=== PATIENT | female | born 1990 | race Caucasian/White ===

== ENCOUNTER 2019-09-20 09:27 | Emergency (ER) | payer BC ==
--- NOTE | 2019-09-20 10:13 | ED ---
General Adult HPI - General Chief complaint: Vaginal Bleeding Stated complaint: 6wks preg, bleeding Time Seen by Provider: 09/20/19 09:40 Source: patient, RN notes reviewed Mode of arrival: ambulatory Limitations: no limitations - History of Present Illness Initial comments: 29-year-old female presents emergency Department with chief complaint of vaginal bleeding in early . Patient states that she is A3 is currently 6-[address] to [address] Dr[address] Moulton. Patient states she has very mild abdominal cramping, no dysuria no hematuria denies any diarrhea constipation appears or chills. - Related Data Allergies Allergy/AdvReac Type Severity Reaction Status Date / Time amoxicillin Allergy Unknown Verified 09/20/19 09:33 Review of Systems ROS Statement: Those systems with pertinent positive or pertinent negative responses have been documented in the HPI. ROS Other: All systems not noted in ROS Statement are negative. Past Medical History Past Medical History: No Reported History History of Any Multi-Drug Resistant Organisms: None Reported Past Surgical History: Ear Surgery Additional Past Surgical History / Comment(s): D&C Past Psychological History: No Psychological Hx Reported Smoking Status: Current every day smoker Past Alcohol Use History: None Reported Past Drug Use History: None Reported General Exam Limitations: no limitations General appearance: alert, in no apparent distress Head exam: Present: atraumatic, normocephalic, normal inspection Eye exam: Present: normal appearance, PERRL, EOMI. Absent: scleral icterus, conjunctival injection, periorbital swelling ENT exam: Present: normal exam, normal oropharynx, mucous membranes moist Respiratory exam: Present: normal lung sounds bilaterally. Absent: respiratory distress, wheezes, rales, rhonchi, stridor Cardiovascular Exam: Present: regular rate, normal rhythm, normal heart sounds. Absent: systolic murmur, diastolic murmur, rubs, gallop, clicks GI/Abdominal exam: Present: soft, normal bowel sounds. Absent: distended, tenderness, guarding, rebound, rigid Back exam: Absent: CVA tenderness (R), CVA tenderness (L) Neurological exam: Present: alert Skin exam: Present: warm, dry, intact, normal color. Absent: rash Course Vital Signs 09/20/19 09:31 Temperature 98.3 F Pulse Rate 90 Respiratory 18 Rate Blood Pressure 114/76 O2 Sat by Pulse 96 Oximetry Medical Decision Making - Medical Decision Making Patient ultrasound does not show any evidence of intrauterine at this time though beta hCG is 959. This is concerning for possible miscarriage versus early . I do not feel that she has not She is in no discomfort at this time. Vital are stable patient will have repeat hCG in 2 days and return for any worsening symptoms. - Lab Data Result diagrams: 09/20/19 10:01 09/20/19 10:01 Lab Results 09/20/19 09/20/19 09/20/19 Range/Units 10:01 10: 10:01 WBC 7.3 (3.8-10.6) k/uL RBC 4.48 (3.80-5.40) m/uL Hgb 13.4 (11.4-16.0) gm/dL Hct 40.0 (34.0-46.0) % MCV 89.2 (80.0-100.0) fL MCH 30.0 (25.0-35.0) pg MCHC 33.6 (31.0-37.0) g/dL RDW 11.8 (11.5-15.5) % Plt Count 245 (150-450) k/uL Neutrophils % 61 % Lymphocytes % 27 % Monocytes % 5 % Eosinophils % 3 % Basophils % 2 % Neutrophils # 4.5 (1.3-7.7) k/uL Lymphocytes # 2.0 (1.0-4.8) k/uL Monocytes # 0.3 (0-1.0) k/uL Eosinophils # 0.2 (0-0.7) k/uL Basophils # 0.2 (0-0.2) k/uL Sodium 138 (137-145) mmol/L Potassium 5.0 (3.5-5.1) mmol/L Chloride 108 H (98-107) mmol/L Carbon Dioxide 23 (22-30) mmol/L Anion Gap 7 mmol/L BUN 12 (7-17) mg/dL Creatinine 0.53 (0.52-1.04) mg/dL Est GFR (CKD-EPI)AfAm >90 (>60 ml/min/1.73 sqM) Est GFR (CKD-EPI)NonAf >90 (>60 ml/min/1.73 sqM) Glucose 121 H (74-99) mg/dL Calcium 9.2 (8.4-10.2) mg/dL HCG, Quant 959.7 mIU/mL Urine Color Light Yellow Urine Appearance Clear (Clear) Urine pH 7.0 (5.0-8.0) Ur Specific [place] 1.011 (1.001-1.035) Urine Protein Negative (Negative) Urine Glucose (UA) Negative (Negative) Urine Ketones Negative (Negative) Urine Blood Large H (Negative) Urine Nitrite Negative (Negative) Urine Bilirubin Negative (Negative) Urine Urobilinogen <2.0 (<2.0) mg/dL Ur Leukocyte Esterase Moderate H (Negative) Urine RBC <1 (0-5) /hpf Urine WBC 4 (0-5) /hpf Ur Squamous Epith Cells 1 (0-4) /hpf Urine Bacteria Rare H (None) /hpf Disposition Clinical Impression: Threatened miscarriage in early Disposition: HOME SELF-CARE Condition: Stable Instructions (If sedation given, give patient instructions): Threatened Miscarriage (ED) Additional Instructions: Please return to the Emergency Department if symptoms worsen or any other concerns. Is patient prescribed a controlled substance at d/c from ED?: No Referrals: Margarita Ac MD [Primary Care Provider] - 1-2 days Time of Disposition: 11:10
[2019-09-20 10:18] LABS: Basophils # (A) 0.2 k/uL (0-0.2); Basophils % (A) 2 %; Eosinophils # (A) 0.2 k/uL (0-0.7); Eosinophils % (A) 3 %; HGB 13.4 gm/dL (11.4-16.0); Lymphocytes % (A) 27 %; MCHC 33.6 g/dL (31.0-37.0); MCV 89.2 fL (80.0-100.0); Mean Platelet Volume 7.3; Monocytes # (A) 0.3 k/uL (0-1.0); Monocytes % (A) 5 %; Neutrophils # (A) 4.5 k/uL (1.3-7.7); Neutrophils % (A) 61 %; Platelet Count 245 k/uL (150-450); RBC 4.48 m/uL (3.80-5.40); RDW 11.8 % (11.5-15.5); WBC 7.3 k/uL (3.8-10.6)
[2019-09-20 10:27] LABS: Appearance,Urine Clear (Clear); Bacteria,Urine Rare /hpf; Bilirubin,Urine Negative (Negative); Blood,Urine Large (Negative); Color,Urine Light Yellow; Glucose,Urine (UA) Negative (Negative); Ketones,Urine Negative (Negative); Leukocyte Esterase,Urine Moderate (Negative); Nitrite,Urine Negative (Negative); Protein,Urine Negative (Negative); RBC,Urine <1 /hpf (0-5); Specific Gravity,Urine 1.011 (1.001-1.035); Squamous Epithelial Cell,Urine 1 /hpf (0-4); Urobilinogen,Urine <2.0 mg/dL (<2.0)
[2019-09-20 10:34] LABS: African American GFR (CKD) >90 (>60 ml/min/1.73 sqM); Anion Gap 7 mmol/L; Blood Urea Nitrogen 12 mg/dL (7-17); Calcium 9.2 mg/dL (8.4-10.2); Carbon Dioxide 23 mmol/L (22-30); Chloride 108 mmol/L (98-107); Glucose 121 mg/dL (74-99); Non-African American GFR(CKD) >90 (>60 ml/min/1.73 sqM); Sodium 138 mmol/L (137-145)
[2019-09-20 10:50] LABS: HCG,Quantitative Serum 959.7 mIU/mL
--- NOTE | 2019-09-20 10:50 | US ---
EXAMINATION TYPE: Transabdominal DATE OF EXAM: 09/20/2019 10:33 AM COMPARISON: NONE CLINICAL HISTORY: bleeding. Pt states vaginal bleeding x 3 days has increased, cramping EXAM PERFORMED: Transvaginal (TV) and Transabdominal (TA) EXAM MEASUREMENTS: GESTATIONAL AGE / DATING Physician Established: not established Dates by LMP: (6 weeks/2 days) EDC: 05/13/2020 Dates by First Scan: No prior Dates by Current Scan for: No IUP seen at this time MATERNAL ANATOMY Uterus: 8.1 x 3.6 x 4.8 cm Right Ovary: 3.6 x 1.9 x 2.8 cm. There is a isoechoic area within the right ovary measuring 1.9 x 1. 4 x 1.3 cm Left Ovary: 2.3 x 2.1 x 1.9 cm Post CDS / Adnexa: Echogenic area right adnexa= 1.5 x 1.0 x 1.0 cm located in-between right ovary and uterus Presence of free fluid: No Presence of corpus luteal cyst: No GESTATION / SURVEY IUP: No IUP seen at this time, Endo thickness= 0.7 cm Date of LMP: 08/07/2019 Beta HcG (if available): Not available at this time IMPRESSION: 1. No intrauterine gestation identified. Correlate with the beta hCG level. Ectopic is not excluded. 2. Solid appearing 1.9 x 1.4 x 1.3 cm area right ovary. 3. Between the uterus and right ovary there is a solid iso to slightly hyperechoic area measuring rufina roximately 1.5 x 1.0 cm
[2019-09-20 11:08] VITALS: RESP 20
[2019-09-20 11:11] VITALS: BP 120/71; PULSE 89; TEMP 98.5
== END 2019-09-20 11:41 | disposition home or self-care (01) ==
LOC: EC 09:27
DX: O20.0 Threatened abortion (principal); O99.331 Smoking (tobacco) complicating pregnancy, first trimester; F17.200 Nicotine dependence, unspecified, uncomplicated; Z3A.01 Less than 8 weeks gestation of pregnancy; Z88.0 Allergy status to penicillin
CPT/HCPCS: 36415; 76801; 76817; 80048; 81001; 84702; 85025; 86900; 86901; 99284

== ENCOUNTER → 2019-09-25 | Outpatient (CLI) | payer BC | END | disposition home or self-care (01) | LOC: LABMAIN 20:11 | PROVIDERS: ATTEND Physician Assistant | DX: O20.0 Threatened abortion (principal) | CPT/HCPCS: 36415; 84702 ==

== ENCOUNTER → 2019-09-27 | Outpatient (CLI) | payer BC | END | disposition home or self-care (01) | LOC: LABWHC1 16:10 | PROVIDERS: ATTEND Obstetrics & Gynecology | DX: O00.90 Unspecified ectopic pregnancy without intrauterine pregnancy (principal) | CPT/HCPCS: 36415; 84702 ==

== ENCOUNTER → 2019-09-28 | Outpatient (CLI) | payer BC ==
[~2019-09-28] MED LIST: METHOTREXATE SODIUM (PF) 25 MG/ML 2 ML VIAL IM NR
[2019-09-28 14:51] VITALS: BP 136/83; PULSE 100; RESP 16; TEMP 97.9
[2019-09-28 15:23] LABS: ALT 46 U/L (9-52); AST 20 U/L (14-36)
== END ==
LOC: PROCWHC3 14:41
PROVIDERS: ATTEND Obstetrics & Gynecology
DX: O00.90 Unspecified ectopic pregnancy without intrauterine pregnancy (principal); Z3A.00 Weeks of gestation of pregnancy not specified
CPT/HCPCS: 84450; 84460; 96402; J9260

== ENCOUNTER → 2019-10-02 | Outpatient (CLI) | payer BC | END | disposition home or self-care (01) | LOC: LABWHC1 11:24 | PROVIDERS: ATTEND Obstetrics & Gynecology | DX: O00.90 Unspecified ectopic pregnancy without intrauterine pregnancy (principal) | CPT/HCPCS: 36415; 84702 ==

== ENCOUNTER 2019-10-05 15:34 | Emergency (ER) | payer BC ==
--- NOTE | 2019-10-05 16:22 | ED ---
Abdominal Pain HPI - General Chief Complaint: Abdominal Pain Stated Complaint: 8 wks preg/back pain & spotting Time Seen by Provider: 10/05/19 15:43 Source: patient Mode of arrival: ambulatory Limitations: no limitations - History of Present Illness Initial Comments: Patient is a 29-year-old female presenting to the emergency department to rule out ectopic . Patient was seen in the ER 2 weeks ago for bleeding and ultrasound revealed no IUP at that time. Patient has been following up outpatient with Dr. Moulton for serial hCGs. Patient was given medicine for possible ectopic however patient presents today due to increased and lower abdominal pain and cramping as well as spotting. Patient did call Dr. Moulton's office who recommended she come to the ER for further evaluation. Patient states her last beta hCG was still slightly rising. Patient denies any fever, chills, vomiting. Patient does admit to mild nausea although she feels okay right now. Patient rates the pain a 5/10 at this time and describes it as sharp and shooting in nature. Patient has no other complaints at this time. Upon arrival to ER, vital signs are stable. - Related Data Home Medications Medication Instructions Recorded Confirmed No Known Home Medications 09/28/19 09/28/19 Allergies Allergy/AdvReac Type Severity Reaction Status Date / Time amoxicillin Allergy Unknown Verified 10/05/19 15:42 Review of Systems ROS Statement: Those systems with pertinent positive or pertinent negative responses have been documented in the HPI. ROS Other: All systems not noted in ROS Statement are negative. Past Medical History Past Medical History: No Reported History History of Any Multi-Drug Resistant Organisms: None Reported Past Surgical History: Ear Surgery Additional Past Surgical History / Comment(s): D&C Past Psychological History: No Psychological Hx Reported Smoking Status: Current every day smoker Past Alcohol Use History: None Reported Past Drug Use History: None Reported General Exam - General Exam Comments Initial Comments: GENERAL: Well-appearing, well-nourished and in no acute distress. HEAD: Atraumatic, normocephalic. EYES: Pupils equal round and reactive to light, extraocular movements intact, sclera anicteric, conjunctiva are normal. ENT: TMs normal, nares patent, oropharynx clear without exudates. Moist mucous membranes. NECK: Normal range of motion, supple without lymphadenopathy or JVD. LUNGS: Breath sounds clear to auscultation bilaterally and equal. No wheezes rales or rhonchi. HEART: Regular rate and rhythm without murmurs, rubs or gallops. ABDOMEN: Tender to palpation suprapubic area as well as lower left and right abdomen. Soft, normoactive bowel sounds. No guarding, no rebound. No masses appreciated. EXTREMITIES: Normal range of motion, no pitting or edema. No clubbing or cyanosis. NEUROLOGICAL: Normal speech, normal gait. PSYCH: Normal mood, normal affect. SKIN: Warm, Dry, normal turgor, no rashes or lesions noted. Limitations: no limitations External exam: Present: normal external exam. Absent: lesions Speculum exam: Present: vaginal discharge, cervical discharge (Mild brown and reddish discharge.), other (Cervical os is closed). Absent: vaginal bleeding, foreign body By manual exam: Present: normal by manual exam Course Vital Signs 10/05/19 15:40 Temperature 97.8 F Pulse Rate 101 H Respiratory 20 Rate Blood Pressure 109/65 O2 Sat by Pulse 99 Oximetry Medical Decision Making - Medical Decision Making Patient is a 29-year-old female presenting with a possible ectopic as well as spotting x 1 day. Patient was sent from Dr. Camacho's office for eval uation. Patient took methotrexate one week ago. Vitals are stable. Lab work shows no acute abnormalities. HCG Juan Jose is 1400 which is down from 2000. Urine shows small amount of blood and no signs of infection. Ultrasound shows a 1.5 cm solid right adnexal mass that could relate to ectopic and has no larger than previous exam. Empty uterus. Pelvic exam shows mild brownish red discharge. Cervical os is closed. Minimal pain on palpation. Findings were discussed with on-call [employer] Dr. Smith who at crease that patient stable for discharge and can follow up with Dr. Moulton tomorrow. Patient is in agreement with this plan of care. Patient is stable for discharge at this time. Return parameters were discussed with the patient she verbalized understanding. Case discussed with Dr. Rivers. - Lab Data Result diagrams: 10/05/19 16:14 10/05/19 16:14 Lab Results 10/05/19 10/05/19 10/05/19 Range/Units 16:14 16:14 16:20 WBC 6.4 (3.8-10.6) k/uL RBC 4.29 (3.80-5.40) m/uL Hgb 13.0 (11.4-16.0) gm/dL Hct 38.3 (34.0-46.0) % MCV 89.3 (80.0-100.0) fL MCH 30.3 (25.0-35.0) pg MCHC 33.9 (31.0-37.0) g/dL RDW 11.9 (11.5-15.5) % Plt Count 243 (150-450) k/uL Neutrophils % 54 % Lymphocytes % 30 % Monocytes % 9 % Eosinophils % 4 % Basophils % 0 % Neutrophils # 3.5 (1.3-7.7) k/uL Lymphocytes # 2.0 (1.0-4.8) k/uL Monocytes # 0.6 (0-1.0) k/uL Eosinophils # 0.3 (0-0.7) k/uL Basophils # 0.0 (0-0.2) k/uL Sodium 138 (137-145) mmol/L Potassium 4.3 (3.5-5.1) mmol/L Chloride 108 H (98-107) mmol/L Carbon Dioxide 25 (22-30) mmol/L Anion Gap 5 mmol/L BUN 19 H (7-17) mg/dL Creatinine 0.59 (0.52-1.04) mg/dL Est GFR (CKD-EPI)AfAm >90 (>60 ml/min/1.73 sqM) Est GFR (CKD-EPI)NonAf >90 (>60 ml/min/1.73 sqM) Glucose 99 (74-99) mg/dL Calcium 9.3 (8.4-10.2) mg/dL Total Bilirubin 0.4 (0.2-1.3) mg/dL AST 22 (14-36) U/L ALT 33 (4-34) U/L Alkaline Phosphatase 80 (38-126) U/L Total Protein 6.6 (6.3-8.2) g/dL Albumin 4.1 (3.5-5.0) g/dL HCG, Quant 1484.1 mIU/mL Urine Color Yellow Urine Appearance Cloudy H (Clear) Urine pH 6.5 (5.0-8.0) Ur Specific [place] 1.026 (1.001-1.035) Urine Protein Trace H (Negative) Urine Glucose (UA) Negative (Negative) Urine Ketones Negative (Negative) Urine Blood Moderate H (Negative) Urine Nitrite Negative (Negative) Urine Bilirubin Negative (Negative) Urine Urobilinogen <2.0 (<2.0) mg/dL Ur Leukocyte Esterase Small H (Negative) Urine RBC 2 (0-5) /hpf Urine WBC 7 H (0-5) /hpf Ur Squamous Epith Cells 17 H (0-4) /hpf Urine Bacteria Rare H (None) /hpf Urine Mucus Rare H (None) /hpf Disposition Clinical Impression: Abdominal pain, Ectopic Disposition: HOME SELF-CARE Condition: Stable Instructions (If sedation given, give patient instructions): Ectopic (DC) Additional Instructions: Please return to the Emergency Department if symptoms worsen or any other concerns. Lopid Dr. Camacho tomorrow as discussed. Is patient prescribed a controlled substance at d/c from ED?: No Referrals: Margarita Ac MD [Primary Care Provider] - 1-2 days Antwan Camacho DO [Family Provider] - 1-2 days
[2019-10-05 16:31] LABS: ALT 33 U/L (4-34); AST 22 U/L (14-36); African American GFR (CKD) >90 (>60 ml/min/1.73 sqM); Albumin 4.1 g/dL (3.5-5.0); Alkaline Phosphatase 80 U/L (38-126); Anion Gap 5 mmol/L; Blood Urea Nitrogen 19 mg/dL (7-17); Calcium 9.3 mg/dL (8.4-10.2); Carbon Dioxide 25 mmol/L (22-30); Chloride 108 mmol/L (98-107); Glucose 99 mg/dL (74-99); Non-African American GFR(CKD) >90 (>60 ml/min/1.73 sqM); Potassium 4.3 mmol/L (3.5-5.1); Sodium 138 mmol/L (137-145); Total Bilirubin 0.4 mg/dL (0.2-1.3); Total Protein 6.6 g/dL (6.3-8.2)
[2019-10-05 16:32] LABS: Basophils % (A) 0 %; Eosinophils # (A) 0.3 k/uL (0-0.7); Eosinophils % (A) 4 %; HCT 38.3 % (34.0-46.0); Lymphocytes % (A) 30 %; MCH 30.3 pg (25.0-35.0); MCHC 33.9 g/dL (31.0-37.0); MCV 89.3 fL (80.0-100.0); Mean Platelet Volume 8.1; Monocytes # (A) 0.6 k/uL (0-1.0); Monocytes % (A) 9 %; Neutrophils # (A) 3.5 k/uL (1.3-7.7); Neutrophils % (A) 54 %; Platelet Count 243 k/uL (150-450); RBC 4.29 m/uL (3.80-5.40); RDW 11.9 % (11.5-15.5); WBC 6.4 k/uL (3.8-10.6)
[2019-10-05 16:42] LABS: Appearance,Urine Cloudy (Clear); Bacteria,Urine Rare /hpf; Bilirubin,Urine Negative (Negative); Blood,Urine Moderate (Negative); Color,Urine Yellow; Glucose,Urine (UA) Negative (Negative); Ketones,Urine Negative (Negative); Leukocyte Esterase,Urine Small (Negative); Mucus,Urine Rare /hpf; Nitrite,Urine Negative (Negative); PH, Urine 6.5 (5.0-8.0); Protein,Urine Trace (Negative); RBC,Urine 2 /hpf (0-5); Specific Gravity,Urine 1.026 (1.001-1.035); Squamous Epithelial Cell,Urine 17 /hpf (0-4); Urobilinogen,Urine <2.0 mg/dL (<2.0)
[2019-10-05 16:47] LABS: HCG,Quantitative Serum 1484.1 mIU/mL
--- NOTE | 2019-10-05 17:23 | US ---
EXAMINATION TYPE: Transabdominal DATE OF EXAM: 10/05/2019 4:55 PM COMPARISON: US 09/20/2019 CLINICAL HISTORY: Ectopic, bleeding pain. Patient was given methotrexate one week ago. EXAM PERFORMED: Transvaginal (TV) and Transabdominal (TA) EXAM MEASUREMENTS: GESTATIONAL AGE / DATING Physician Established: Not yet established Dates by LMP: 08/07/2019 Dates by First Scan: no IUP seen Dates by Current Scan for: Patient has been given methotrexate one week ago. MATERNAL ANATOMY Uterus: 7.9 x 4.0 x 5.6 cm Right Ovary: 3.2 x 2.3 x 2.9 cm Left Ovary: 3.0 x 1.8 x 2.2 cm Post CDS / Adnexa: echogenic lesion noted adjacent to right ovary measures 1.5 x 1.6 x 1.8 cm as seen on prior. Presence of free fluid: none Solid lesion on right ovary measures 1.7 x 1.2 x 1.3 cm and has peripheral flow. GESTATION / SURVEY Date of LMP: 08/07/2019, patient diagnosed with ectopic and given methotrexate one week ago. Beta HcG (if available): 1481 Similar findings to prior ultrasound dated 09/20/2019. IMPRESSION: 1.5 cm solid right adnexal mass with some peripheral vascular flow that could relate to ectopic pregn toi and is no larger than the previous exam. Empty uterus.
[2019-10-05] MEDS: KETOROLAC 30 MG/ML 1 ML VIAL IVP STA (17:34)
[2019-10-05 18:44] VITALS: BP 100/55; PULSE 76; RESP 19; TEMP 98.2
== END 2019-10-05 18:44 | disposition home or self-care (01) ==
LOC: EC 15:34
DX: O00.90 Unspecified ectopic pregnancy without intrauterine pregnancy (principal); O99.331 Smoking (tobacco) complicating pregnancy, first trimester; F17.200 Nicotine dependence, unspecified, uncomplicated; Z88.0 Allergy status to penicillin; Z98.890 Other specified postprocedural states; Z3A.08 8 weeks gestation of pregnancy
CPT/HCPCS: 36415; 80053; 85025; 81001; 84702; 76801; 76817; 99284; 96374; J1885

== ENCOUNTER 2019-10-06 11:49 | Observation (INO) | payer BC ==
[2019-10-06] MEDS ORDERED: LACTATED RINGERS 1,000 ML IV SCH (13:15)
--- NOTE | 2019-10-06 13:16 | P.HPOB ---
History of Present Illness H&P Date: 10/06/19 Chief Complaint: ectopic Wander is a 29-year-old at approximately 6-7 weeks gestation who arrives with a history of ectopic . She was seen and the ectopic was diagnosed approximately a week ago. She was treated with methotrexate at that time and her beta hCGs have been followed closely. On day 4 after methotrexate her beta hCG was 2000. 3 days later it is down to 1400 which is greater than 25% reduction which is normal. That said, last night she began having fairly significant right lower quadrant pain the pain is at rest and she is not finding that there is any significant relief. However, she was seen and evaluated in the emergency room and an ultrasound was done. At that time no specific changed to the ectopic was seen. She came to my office this morning complaining of worsening of the pain. We did do an office ultrasound and I will did review in real time. There is no free fluid in the pelvis there is no fluid in and around the ovary and at this time I see no change in the visualization of the ectopic based on what they were describing from previous ultrasounds. There is also no ring of fire or specific blood flow to that area. I suspect her pain is due to spontaneous resolution of the ectopic following the methotrexate but, as she relates that the pain can be anywhere from 5-8 out of 10 we'll admit her to the hospital for observation as precaution. I cannot certainly ruled out completely that the ectopic isn't getting to rupture. However, her vital signs are stable. She has no signs or symptoms of hypovolemia and her hemoglobin last night was normal. If there is any concern we'll repeat the CBC sooner than tomorrow morning, but if she remains stable repeat CBC and beta hCG quantitatively and compare and see whether or not we continued to have decreased in the values. We'll plan to give her some oral pain relief as well as Toradol for inflammatory changes that may be occurring due to the resolution of the ectopic . On physical exam again vital signs are stable and she is afebrile. Her heart is regular, lungs are clear, extremities without pain. Abdomen is soft. Positive bowel sounds are noted. There is no signs or symptoms of hemoperitoneum. There is no rebound/rigidity/and no other peritoneal signs. Pelvic exam is also done bimanually. There is no significant pain in the right adnexa and no masses are palpated. She certainly did not react jumping pain and tolerated the exam well. No other gross findings on the pelvic exam are noted. Assessment ectopic methotrexate treatment and process Plan try and get a little better pain control and if that is tolerated then we'll plan to allow her to have diet and watch her very closely. She is aware again that there isn't any way to verify that this ectopic Precis is a rupturing without going to surgery. She does not really want to go to surgery but understands that if we are concerned that this ectopic is rupturing and is not stable then that will be the next step. Past Medical History Past Medical History: No Reported History History of Any Multi-Drug Resistant Organisms: None Reported Past Surgical History: Ear Surgery Additional Past Surgical History / Comment(s): D&C Past Anesthesia/Blood Transfusion Reactions: No Reported Reaction Past Psychological History: No Psychological Hx Reported Smoking Status: Current every day smoker Past Alcohol Use History: None Reported Past Drug Use History: None Reported Medications and Allergies Home Medications Medication Instructions Recorded Confirmed Type No Known Home Medications 09/28/19 09/28/19 History Allergies Allergy/AdvReac Type Severity Reaction Status Date / Time amoxicillin Allergy Unknown Verified 10/06/19 12:10 Exam Osteopathic Statement: *. No significant issues noted on an osteopathic structural exam other than those noted in the History and Physical/Consult. Vital Signs Temp Pulse Resp BP Pulse Ox 10/06/19 11:53 97.9 F 71 16 117/68 99 Intake and Output 10/05/19 10/06/19 10/06/19 22:59 06:59 14:59 Other: Weight 77.111 kg
[2019-10-06] MEDS: KETOROLAC 30 MG/ML 1 ML VIAL IVP SCH ×2 (14:27→20:06)
--- NOTE | 2019-10-06 17:02 | P.PN ---
Progress Note - Text Progress Note Date: 10/06/19 seen and evaluated, she is feeling improved. Her pain is a little better following the Toradol. We'll continue current care for now. I have discussed with Dr. Lopes current condition and treatment plans and all questions were answered for the patient at this time. At this time no ph ysiologic changes and no need to consider surgical options.
[2019-10-06] MEDS: HYDROcodone/APAP 5-325MG 1 EACH TAB PO PRN (21:54)
[2019-10-07] MEDS: KETOROLAC 30 MG/ML 1 ML VIAL IVP SCH ×2 (02:20→07:55)
[2019-10-07] MEDS: HYDROcodone/APAP 5-325MG 1 EACH TAB PO PRN (05:44)
[2019-10-07 07:18] LABS: Basophils % (A) 0 %; Eosinophils # (A) 0.2 k/uL (0-0.7); Eosinophils % (A) 4 %; HCT 37.1 % (34.0-46.0); HGB 12.4 gm/dL (11.4-16.0); Lymphocytes # (A) 1.5 k/uL (1.0-4.8); Lymphocytes % (A) 24 %; MCH 30.2 pg (25.0-35.0); MCHC 33.4 g/dL (31.0-37.0); MCV 90.3 fL (80.0-100.0); Mean Platelet Volume 7.8; Monocytes # (A) 0.4 k/uL (0-1.0); Monocytes % (A) 7 %; Neutrophils # (A) 3.7 k/uL (1.3-7.7); Neutrophils % (A) 62 %; Platelet Count 231 k/uL (150-450); RBC 4.11 m/uL (3.80-5.40)
[2019-10-07 07:57] VITALS: BP 111/65; PULSE 71; RESP 18; TEMP 97.5
--- NOTE | 2019-10-07 09:47 | P.DS ---
Providers Date of admission: 10/06/19 11:49 Expected date of discharge: 10/07/19 Attending physician: Antwan Camacho Primary care physician: Stated None - Discharge Diagnosis(es) (1) Ectopic Current Visit: No Status: Acute Hospital Course: Pt presented with ectopic being treated with MTX. She had an increase in pain but US did not show any change. She was then admitted for observation and pain control. HEr pain is much better today. SHe is ambulating in the room without a problem. Bhcg has gone down significantly. She will be discharged with 3 days of pain medication and then follow up [place] [facility] [place] appt with Dr Camacho in one week. Plan - Discharge Summary New Discharge Prescriptions: New Ibuprofen [Motrin] 600 mg PO Q6HR PRN #30 tab PRN Reason: Mild Pain Or Fever >= 100.5 HYDROcodone/APAP 5-325MG [[place] 5-325] 1 each PO Q4HR PRN #18 tab PRN Reason: Pain Discharge Medication List HYDROcodone/APAP 5-325MG [[place] 5-325] 1 each PO Q4HR PRN #18 tab 10/07/19 [Rx] Ibuprofen [Motrin] 600 mg PO Q6HR PRN #30 tab 10/07/19 [Rx] Follow up Appointment(s)/Referral(s): Antwan Camacho DO [Doctor of Osteopathic Medicine] - 1 Week Discharge Disposition: HOME SELF-CARE
== END 2019-10-07 10:00 | disposition home or self-care (01) ==
LOC: 4FBP 11:49
PROVIDERS: ADMIT Obstetrics & Gynecology; ATTEND Obstetrics & Gynecology
DX: O00.90 Unspecified ectopic pregnancy without intrauterine pregnancy (principal); O99.331 Smoking (tobacco) complicating pregnancy, first trimester; F17.200 Nicotine dependence, unspecified, uncomplicated; Z98.890 Other specified postprocedural states; Z3A.01 Less than 8 weeks gestation of pregnancy
CPT/HCPCS: 96376 ×2; 96374; 85025; 84702; G0378 ×2; G0379; J1885 ×2

== ENCOUNTER → 2019-10-13 | Outpatient (CLI) | payer BC | LOC: LABWHC1 08:50 | PROVIDERS: ATTEND Obstetrics & Gynecology | DX: O00.90 Unspecified ectopic pregnancy without intrauterine pregnancy (principal); Z3A.00 Weeks of gestation of pregnancy not specified | CPT/HCPCS: 36415; 84702 ==

== ENCOUNTER → 2020-05-21 | Outpatient (CLI) | payer BC | END | disposition home or self-care (01) | LOC: LABWHC1 10:06 | PROVIDERS: ATTEND Obstetrics & Gynecology | DX: O00.91 Unspecified ectopic pregnancy with intrauterine pregnancy (principal) | CPT/HCPCS: 36415; 84702 ==

== ENCOUNTER → 2020-05-23 | Outpatient (CLI) | payer BC ==
[2020-05-23 14:51] LABS: HGB 13.7 gm/dL (11.4-16.0); MCH 29.9 pg (25.0-35.0); MCHC 31.8 g/dL (31.0-37.0); Mean Platelet Volume 8.2; Platelet Count 266 k/uL (150-450); RBC 4.58 m/uL (3.80-5.40); RDW 12.6 % (11.5-15.5)
[2020-05-23 18:48] LABS: African American GFR (CKD) 140.8 (60.0-200.0); Non-African American GFR(CKD) 121.5 (60.0-200.0)
[2020-05-23 18:59] LABS: HIV 2 AB Non-Reactive (Non-Reactive); HIV AB P24 Non-Reactive (Non-Reactive); HIV P24 AG Non-Reactive (Non-Reactive)
[2020-05-23 19:23] LABS: HCG,Quantitative Serum 16209.7 mIU/mL
[2020-05-23 20:38] LABS: Hepatitis B Surface Antigen Non-Reactive (Non-Reactive)
[2020-05-23 21:25] LABS: Hemoglobin A1C 5.4 % (4.0-6.0)
[2020-05-24 05:20] LABS: Toxoplasma Antibody (IgG) <3.0 IU/mL (<7.2); Toxoplasma Antibody (IgM) 5.6 AU/mL (<8.0)
== END | disposition home or self-care (01) ==
LOC: LABWHC1 14:00
PROVIDERS: ATTEND Obstetrics & Gynecology
DX: Z34.81 Encounter for supervision of other normal pregnancy, first trimester (principal)
CPT/HCPCS: 36415; 82565; 82947; 83036; 84702; 85027; 86762; 86777; 86778; 86780; 86850; 86900; 86901; 87340; 87390

== ENCOUNTER 2020-09-14 08:00 | Emergency (ER) | payer BC ==
[2020-09-14 08:13] VITALS: RESP 18
--- NOTE | 2020-09-14 08:32 | ED ---
Female Urogenital HPI - General Chief complaint: Vaginal Bleeding Stated complaint: Back pain, pelvic pain, Time Seen by Provider: 09/14/20 08:15 Source: patient, RN notes reviewed Mode of arrival: ambulatory Limitations: no limitations - History of Present Illness Initial comments: This is a 30-year-old female presents emergency Department with chief complaint of vaginal bleeding early . Patient states that she is a 5. Patient states that she's had 2 prior miscarriages, one ectopic last year, recent in June. Patient states she had negative hCG in between her and now. Patient states that she tested positive and she states she started bleeding. Patient states she feels like she is having a miscarriage. Patient states that her WINDOWS APPLICATION DEVELOPER is Dr. Moulton. Patient has no dysuria no urinary no fevers chills nausea vomiting. Patient states that there is only mild bleeding at this time she states she's having cramping pain like a miscarriage. - Related Data Previous Rx's Medication Instructions Recorded HYDROcodone/APAP 5-325MG [[place] 1 each PO Q4HR PRN #18 tab 10/07/19 5-325] Ibuprofen [Motrin] 600 mg PO Q6HR PRN #30 tab 10/07/19 Allergies Allergy/AdvReac Type Severity Reaction Status Date / Time amoxicillin Allergy Unknown Verified 09/14/20 08:13 Review of Systems ROS Statement: Those systems with pertinent positive or pertinent negative responses have been documented in the HPI. ROS Other: All systems not noted in ROS Statement are negative. Past Medical History Past Medical History: No Reported History History of Any Multi-Drug Resistant Organisms: None Reported Past Surgical History: Ear Surgery Additional Past Surgical History / Comment(s): D&C Past Anesthesia/Blood Transfusion Reactions: No Reported Reaction Past Psychological History: No Psychological Hx Reported Smoking Status: Current every day smoker Past Alcohol Use History: None Reported Past Drug Use History: None Reported General Exam Limitations: no limitations General appearance: alert, in no apparent distress Head exam: Present: atraumatic, normocephalic, normal inspection ENT exam: Present: normal exam, mucous membranes moist Neck exam: Present: normal inspection. Absent: tenderness, meningismus, lymphadenopathy Respiratory exam: Present: normal lung sounds bilaterally. Absent: respiratory distress, wheezes, rales, rhonchi, stridor Cardiovascular Exam: Present: regular rate, normal rhythm, normal heart sounds. Absent: systolic murmur, diastolic murmur, rubs, gallop, clicks GI/Abdominal exam: Present: soft, tenderness (Mild suprapubic), normal bowel sounds. Absent: distended, guarding, rebound, rigid Back exam: Absent: CVA tenderness (R), CVA tenderness (L) Neurological exam: Present: alert Skin exam: Present: warm, dry, intact, normal color. Absent: rash Course Vital Signs 09/14/20 09/14/20 08:10 09:13 Temperature 98.5 F Pulse Rate 91 80 Respiratory 18 18 Rate Blood Pressure 128/81 119/65 O2 Sat by Pulse 100 97 Oximetry Medical Decision Making - Medical Decision Making Patient has HG of 19,000, patient has bleeding noted gestational sac on ultrasound though definite pole felt likely to be related blighted ovum and less likely ectopic. I did discuss case with her WINDOWS APPLICATION DEVELOPER Dr. Moulton who recommended patient have repeat hCG on Wednesday will be seen in office on Wednesday. - Lab Data Result diagrams: 09/14/20 08:29 09/14/20 08:29 Lab Results 09/14/20 09/14/20 09/14/20 Range/Units 08:29 08:29 08:34 WBC 7.8 (3.8-10.6) k/uL RBC 4.64 (3.80-5.40) m/uL Hgb 14.4 (11.4-16.0) gm/dL Hct 42.1 (34.0-46.0) % MCV 90.9 (80.0-100.0) fL MCH 31.1 (25.0-35.0) pg MCHC 34.3 (31.0-37.0) g/dL RDW 11.7 (11.5-15.5) % Plt Count 244 (150-450) k/uL MPV 8.0 Neutrophils % 65 % Lymphocytes % 24 % Monocytes % 7 % Eosinophils % 2 % Basophils % 1 % Neutrophils # 5.0 (1.3-7.7) k/uL Lymphocytes # 1.8 (1.0-4.8) k/uL Monocytes # 0.6 (0-1.0) k/uL Eosinophils # 0.2 (0-0.7) k/uL Basophils # 0.1 (0-0.2) k/uL Sodium 136 L (137-145) mmol/L Potassium 3.7 (3.5-5.1) mmol/L Chloride 107 (98-107) mmol/L Carbon Dioxide 21 L (22-30) mmol/L Anion Gap 8 mmol/L BUN 11 (7-17) mg/dL Creatinine 0.52 (0.52-1.04) mg/dL Est GFR (CKD-EPI)AfAm >90 (>60 ml/min/1.73 sqM) Est GFR (CKD-EPI)NonAf >90 (>60 ml/min/1.73 sqM) Glucose 98 (74-99) mg/dL Calcium 8.9 (8.4-10.2) mg/dL HCG, Quant 02231.7 mIU/mL Urine Color Yellow Urine Appearance Cloudy H (Clear) Urine pH 5.5 (5.0-8.0) Ur Specific [place] 1.030 (1.001-1.035) Urine Protein Trace H (Negative) Urine Glucose (UA) Negative (Negative) Urine Ketones 1+ H (Negative) Urine Blood Small H (Negative) Urine Nitrite Negative (Negative) Urine Bilirubin Negative (Negative) Urine Urobilinogen <2.0 (<2.0) mg/dL Ur Leukocyte Esterase Large H (Negative) Urine RBC 3 (0-5) /hpf Urine WBC 65 H (0-5) /hpf Ur Squamous Epith Cells 22 H (0-4) /hpf Urine Bacteria Rare H (None) /hpf Urine Mucus Few H (None) /hpf Disposition Clinical Impression: Threatened miscarriage in early Disposition: HOME SELF-CARE Condition: Stable Instructions (If sedation given, give patient instructions): Threatened Misc arriage (ED) Additional Instructions: Have repeat hCG on Wednesday and follow-up with your WINDOWS APPLICATION DEVELOPER on Wednesday. Please return to the Emergency Department if symptoms worsen or any other concerns. Is patient prescribed a controlled substance at d/c from ED?: No Referrals: None,Stated [Primary Care Provider] - 1-2 days Antwan Camacho DO [Doctor of Osteopathic Medicine] - 1-2 days Time of Disposition: 10:26
[2020-09-14 09:13] LABS: Basophils # (A) 0.1 k/uL (0-0.2); Basophils % (A) 1 %; Eosinophils # (A) 0.2 k/uL (0-0.7); Eosinophils % (A) 2 %; HCT 42.1 % (34.0-46.0); HGB 14.4 gm/dL (11.4-16.0); Lymphocytes # (A) 1.8 k/uL (1.0-4.8); Lymphocytes % (A) 24 %; MCH 31.1 pg (25.0-35.0); MCHC 34.3 g/dL (31.0-37.0); MCV 90.9 fL (80.0-100.0); Monocytes # (A) 0.6 k/uL (0-1.0); Monocytes % (A) 7 %; Neutrophils % (A) 65 %; Platelet Count 244 k/uL (150-450); RBC 4.64 m/uL (3.80-5.40); RDW 11.7 % (11.5-15.5); WBC 7.8 k/uL (3.8-10.6)
[2020-09-14 09:20] LABS: Appearance,Urine Cloudy (Clear); Bacteria,Urine Rare /hpf; Bilirubin,Urine Negative (Negative); Blood,Urine Small (Negative); Color,Urine Yellow; Glucose,Urine (UA) Negative (Negative); Ketones,Urine 1+ (Negative); Leukocyte Esterase,Urine Large (Negative); Mucus,Urine Few /hpf; Nitrite,Urine Negative (Negative); PH, Urine 5.5 (5.0-8.0); Protein,Urine Trace (Negative); RBC,Urine 3 /hpf (0-5); Squamous Epithelial Cell,Urine 22 /hpf (0-4); Urobilinogen,Urine <2.0 mg/dL (<2.0); WBC,Urine 65 /hpf (0-5)
[2020-09-14 09:23] LABS: African American GFR (CKD) >90 (>60 ml/min/1.73 sqM); Anion Gap 8 mmol/L; Blood Urea Nitrogen 11 mg/dL (7-17); Calcium 8.9 mg/dL (8.4-10.2); Carbon Dioxide 21 mmol/L (22-30); Chloride 107 mmol/L (98-107); Glucose 98 mg/dL (74-99); Non-African American GFR(CKD) >90 (>60 ml/min/1.73 sqM); Potassium 3.7 mmol/L (3.5-5.1); Sodium 136 mmol/L (137-145)
[2020-09-14] MEDS ORDERED: cefTRIAXone IN SWFI 1,000 MG/10 ML SYRINGE IVP STA (09:25)
--- NOTE | 2020-09-14 09:54 | US ---
EXAMINATION TYPE: Transabdominal DATE OF EXAM: 09/14/2020 8:16 AM COMPARISON: NONE CLINICAL HISTORY: bleeding. Bleeding and pelvic pain x couple days, 8, para 2, miscarriage 3, 1, ectopic 1, history of D&C EXAM PERFORMED: Transvaginal (TV) and Transabdominal (TA) EXAM MEASUREMENTS: GESTATIONAL AGE / DATING Physician Established: Not Established Yet Dates by LMP: Unknown Dates by First Scan: This is 1st scan Dates by Current Scan for: By gestational sac ( 5 weeks/4 days) EDC: 05/13/2021 MATERNAL ANATOMY Uterus: 8.0 x 5.6 x 6.4cm, anteverted Right Ovary: 3.7 x 2.3 x 2.5cm Left Ovary: 2.7 x 1.9 x 2.1cm Post CDS / Adnexa: small amount of free fluid in posterior cul de sac Presence of free fluid: yes Presence of corpus luteal cyst: right ovary: 2.1 x 1.6 x 1.8cm Presence of subchorionic bleed: yes: 0.5 x 1.3 x 1.1cm GESTATION / SURVEY No pole seen at this time MSD: 1.4cm (5 weeks/4 days) Yolk Sac (normal less than 6mm): 3.3mm Date of LMP: Patient usure Beta HcG (if available): Not available at time of exam. IMPRESSION: 1. Intrauterine gestational sac without pole at this time may reflect normal early IUP. Additio nal possibilities include that of blighted ovum, ectopic as well as missed spontaneous abor tion. Serial beta hCG and/or ultrasound is advised.
[2020-09-14 10:07] LABS: HCG,Quantitative Serum 19798.7 mIU/mL
[2020-09-14 11:08] VITALS: BP 113/74; PULSE 82; TEMP 98
== END 2020-09-14 11:08 | disposition home or self-care (01) ==
LOC: EC 08:00
DX: O20.0 Threatened abortion (principal); F17.200 Nicotine dependence, unspecified, uncomplicated; Z88.0 Allergy status to penicillin
CPT/HCPCS: 36415; 86900; 86901; 80048; 85025; 81001; 84702; 87086; 76801; 76817; 99284; 96374; J0696

== ENCOUNTER → 2020-09-16 | Outpatient (CLI) | payer BC | END | disposition home or self-care (01) | LOC: LABWHC1 08:01 | PROVIDERS: ATTEND Physician Assistant | DX: O20.0 Threatened abortion (principal) | CPT/HCPCS: 36415; 84702 ==

== ENCOUNTER 2021-04-15 10:02 | Emergency (ER) | payer BC ==
[2021-04-15 10:06] VITALS: RESP 18
[2021-04-15] MEDS ORDERED: KETOROLAC 15 MG/ML 1 ML VIAL IM STA (10:20)
[2021-04-15 10:38] LABS: Basophils # (A) 0.1 k/uL (0-0.2); Basophils % (A) 1 %; Eosinophils # (A) 0.2 k/uL (0-0.7); Eosinophils % (A) 4 %; HCT 40.6 % (34.0-46.0); HGB 14.1 gm/dL (11.4-16.0); Lymphocytes # (A) 1.7 k/uL (1.0-4.8); Lymphocytes % (A) 29 %; MCH 30.7 pg (25.0-35.0); MCHC 34.8 g/dL (31.0-37.0); MCV 88.4 fL (80.0-100.0); Mean Platelet Volume 7.9; Monocytes # (A) 0.3 k/uL (0-1.0); Monocytes % (A) 5 %; Neutrophils # (A) 3.5 k/uL (1.3-7.7); Neutrophils % (A) 61 %; Platelet Count 220 k/uL (150-450); RDW 11.7 % (11.5-15.5); WBC 5.7 k/uL (3.8-10.6)
--- NOTE | 2021-04-15 10:42 | XR ---
EXAMINATION TYPE: XR lumbar spine 2 or 3V DATE OF EXAM: 04/15/2021 CLINICAL HISTORY: pain TECHNIQUE: Three views of the lumbar spine are submitted. COMPARISON: None. FINDINGS: There are 5 lumbar type vertebral bodies identified. The lumbar spine shows satisfactory alignment w ithout evidence of acute fracture or dislocation. Vertebral body heights are within normal limits. Disc spaces are within normal limits. The overlying soft tissue appears unremarkable. IMPRESSION: No acute fracture or dislocation is seen in the lumbar spine. ICD 10 NO FRACTURE, INITIAL EVALUATION
[2021-04-15 10:48] LABS: Appearance,Urine Cloudy (Clear); Bacteria,Urine Rare /hpf; Bilirubin,Urine Negative (Negative); Blood,Urine Negative (Negative); Color,Urine Yellow; Glucose,Urine (UA) Negative (Negative); Ketones,Urine Negative (Negative); Leukocyte Esterase,Urine Moderate (Negative); Mucus,Urine Few /hpf; Nitrite,Urine Negative (Negative); Protein,Urine Trace (Negative); RBC,Urine 6 /hpf (0-5); Specific Gravity,Urine 1.036 (1.001-1.035); Squamous Epithelial Cell,Urine 40 /hpf (0-4); Urobilinogen,Urine <2.0 mg/dL (<2.0); WBC,Urine 8 /hpf (0-5)
--- NOTE | 2021-04-15 10:48 | ED ---
Back Pain HPI - General Chief Complaint: Back Pain/Injury Stated Complaint: abd & back pain Time Seen by Provider: 04/15/21 10:15 Source: patient, RN notes reviewed Limitations: no limitations - History of Present Illness Initial Comments: Patient is a 30-year-old female that presents to the emergency room complaining of low back pain that radiates down her bilateral lower extremities. She notes that pain started this morning after she woke up. 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 She denied any issues with bladder or bowel incontinence or retention. She denied any saddle anesthesia. She notes that she does have full range of motion and strength on her bilateral lower extremities. She noted that her pain was approximately an 8 out of 10 with no relief or mental medications. She does not appear to be in any distress or pain while sitting up in bed during the exam interview. She denied any chest pain shortness breath headache nausea vomiting diarrhea constipation fever fatigue chills. - Related Data Previous Rx's Medication Instructions Recorded Nitrofurantoin Monohyd/M-Cryst 100 mg PO Q12HR #10 cap 04/15/21 [Macrobid] Allergies Allergy/AdvReac Type Severity Reaction Status Date / Time amoxicillin Allergy Unknown Verified 04/15/21 11:05 Review of Systems ROS Statement: Those systems with pertinent positive or pertinent negative responses have been documented in the HPI. ROS Other: All systems not noted in ROS Statement are negative. Past Medical History Past Medical History: No Reported History History of Any Multi-Drug Resistant Organisms: None Reported Past Surgical History: Ear Surgery Additional Past Surgical History / Comment(s): D&C Past Anesthesia/Blood Transfusion Reactions: No Reported Reaction Past Psychological History: No Psychological Hx Reported Smoking Status: Former smoker Past Alcohol Use History: None Reported Past Drug Use History: None Reported General Exam Limitations: no limitations General appearance: alert, in no apparent distress Head exam: Present: atraumatic, normocephalic, normal inspection Eye exam: Present: normal appearance, PERRL, EOMI. Absent: scleral icterus, conjunctival injection, periorbital swelling Neck exam: Present: normal inspection Respiratory exam: Present: normal lung sounds bilaterally. Absent: respiratory distress, wheezes, rales, rhonchi, stridor Cardiovascular Exam: Present: regular rate, normal rhythm, normal heart sounds. Absent: systolic murmur, diastolic murmur, rubs, gallop, clicks GI/Abdominal exam: Present: soft, normal bowel sounds. Absent: distended, tenderness, guarding, rebound, rigid Extremities exam: Present: normal inspection, full ROM, normal capillary refill. Absent: tenderness, pedal edema, joint swelling, calf tenderness Left Hip exam: Present: normal inspection Upper Leg exam: Present: normal inspection Knee exam: Present: normal inspection, full ROM. Absent: tenderness Lower Leg exam: Present: normal inspection Ankle exam: Present: normal inspection, full ROM Right Hip exam: Present: normal inspection, full ROM. Absent: tenderness Upper Leg exam: Present: normal inspection Knee exam: Present: normal inspection, full ROM. Absent: tenderness Lower Leg exam: Present: normal inspection Ankle exam: Present: normal inspection, full ROM Back exam: Present: normal inspection, full ROM, paraspinal tenderness (Right lower back). Absent: CVA tenderness (R), CVA tenderness (L), muscle spasm, vertebral tenderness Neurological exam: Present: alert, oriented X3 Psychiatric exam: Present: normal affect, normal mood Skin exam: Present: warm, dry, intact, normal color. Absent: rash Course Vital Signs 04/15/21 10:03 Temperature 98.0 F Pulse Rate 79 Respiratory 18 Rate Blood Pressure 119/77 O2 Sat by Pulse 98 Oximetry Medical Decision Making - Medical Decision Making 30-year-old female complaining of low back pain that radiates down bilateral lower extremities. Basic labs and lumbar spine x-ray ordered. Labs ordered due to patient thinking that she might possibly be . 15 mg of Toradol ordered Urine shows several white blood cells most likely a mild urinary tract inf ection. X-ray was negative for any acute fractures or dislocations. Case discussed with Dr. Piedra, patient discharge home. - Lab Data Result diagrams: 04/15/21 10:28 04/15/21 10:28 Lab Results 04/15/21 04/15/21 04/15/21 Range/Units 10:28 10:28 10:28 WBC 5.7 (3.8-10.6) k/uL RBC 4.60 (3.80-5.40) m/uL Hgb 14.1 (11.4-16.0) gm/dL Hct 40.6 (34.0-46.0) % MCV 88.4 (80.0-100.0) fL MCH 30.7 (25.0-35.0) pg MCHC 34.8 (31.0-37.0) g/dL RDW 11.7 (11.5-15.5) % Plt Count 220 (150-450) k/uL MPV 7.9 Neutrophils % 61 % Lymphocytes % 29 % Monocytes % 5 % Eosinophils % 4 % Basophils % 1 % Neutrophils # 3.5 (1.3-7.7) k/uL Lymphocytes # 1.7 (1.0-4.8) k/uL Monocytes # 0.3 (0-1.0) k/uL Eosinophils # 0.2 (0-0.7) k/uL Basophils # 0.1 (0-0.2) k/uL Sodium (137-145) mmol/L Potassium (3.5-5.1) mmol/L Chloride (98-107) mmol/L Carbon Dioxide (22-30) mmol/L Anion Gap mmol/L BUN (7-17) mg/dL Creatinine (0.52-1.04) mg/dL Est GFR (CKD-EPI)AfAm (>60 ml/min/1.73 sqM) Est GFR (CKD-EPI)NonAf (>60 ml/min/1.73 sqM) Glucose (74-99) mg/dL Calcium (8.4-10.2) mg/dL Total Bilirubin (0.2-1.3) mg/dL AST (14-36) U/L ALT (4-34) U/L Alkaline Phosphatase (38-126) U/L Total Protein (6.3-8.2) g/dL Albumin (3.5-5.0) g/dL Urine Color Yellow Urine Appearance Cloudy H (Clear) Urine pH 6.0 (5.0-8.0) Ur Specific [place] 1.036 H (1.001-1.035) Urine Protein Trace H (Negative) Urine Glucose (UA) Negative (Negative) Urine Ketones Negative (Negative) Urine Blood Negative (Negative) Urine Nitrite Negative (Negative) Urine Bilirubin Negative (Negative) Urine Urobilinogen <2.0 (<2.0) mg/dL Ur Leukocyte Esterase Moderate H (Negative) Urine RBC 6 H (0-5) /hpf Urine WBC 8 H (0-5) /hpf Ur Squamous Epith Cells 40 H (0-4) /hpf Urine Bacteria Rare H (None) /hpf Urine Mucus Few H (None) /hpf Urine HCG, Qual Not Detected (Not Detectd) 04/15/21 Range/Units 10:28 WBC (3.8-10.6) k/uL RBC (3.80-5.40) m/uL Hgb (11.4-16.0) gm/dL Hct (34.0-46.0) % MCV (80.0-100.0) fL MCH (25.0-35.0) pg MCHC (31.0-37.0) g/dL RDW (11.5-15.5) % Plt Count (150-450) k/uL MPV Neutrophils % % Lymphocytes % % Monocytes % % Eosinophils % % Basophils % % Neutrophils # (1.3-7.7) k/uL Lymphocytes # (1.0-4.8) k/uL Monocytes # (0-1.0) k/uL Eosinophils # (0-0.7) k/uL Basophils # (0-0.2) k/uL Sodium 138 (137-145) mmol/L Potassium 4.0 (3.5-5.1) mmol/L Chloride 107 (98-107) mmol/L Carbon Dioxide 22 (22-30) mmol/L Anion Gap 9 mmol/L BUN 12 (7-17) mg/dL Creatinine 0.56 (0.52-1.04) mg/dL Est GFR (CKD-EPI)AfAm >90 (>60 ml/min/1.73 sqM) Est GFR (CKD-EPI)NonAf >90 (>60 ml/min/1.73 sqM) Glucose 116 H (74-99) mg/dL Calcium 9.3 (8.4-10.2) mg/dL Total Bilirubin 0.3 (0.2-1.3) mg/dL AST 23 (14-36) U/L ALT 22 (4-34) U/L Alkaline Phosphatase 63 (38-126) U/L Total Protein 6.4 (6.3-8.2) g/dL Albumin 4.0 (3.5-5.0) g/dL Urine Color Urine Appearance (Clear) Urine pH (5.0-8.0) Ur Specific [place] (1.001-1.035) Urine Protein (Negative) Urine Glucose (UA) (Negative) Urine Ketones (Negative) Urine Blood (Negative) Urine Nitrite (Negative) Urine Bilirubin (Negative) Urine Urobilinogen (<2.0) mg/dL Ur Leukocyte Esterase (Negative) Urine RBC (0-5) /hpf Urine WBC (0-5) /hpf Ur Squamous Epith Cells (0-4) /hpf Urine Bacteria (None) /hpf Urine Mucus (None) /hpf Urine HCG, Qual (Not Detectd) Disposition Clinical Impression: Urinary tract infection, Strain of lumbar region Disposition: HOME SELF-CARE Condition: Stable Instructions (If sedation given, give patient instructions): Acute Low Back Pain (ED) Additional Instructions: Please return to the Emergency Department if symptoms worsen or any other concerns. Take antibiotics as prescribed. Follow-up primary care as needed. Avoid any straining as lifting bending or activity. Is patient prescribed a controlled substance at d/c from ED?: No Referrals: None,Stated [Primary Care Provider] - 1-2 days Time of Disposition: 11:29
[2021-04-15 10:57] LABS: ALT 22 U/L (4-34); AST 23 U/L (14-36); African American GFR (CKD) >90 (>60 ml/min/1.73 sqM); Alkaline Phosphatase 63 U/L (38-126); Anion Gap 9 mmol/L; Blood Urea Nitrogen 12 mg/dL (7-17); Calcium 9.3 mg/dL (8.4-10.2); Carbon Dioxide 22 mmol/L (22-30); Chloride 107 mmol/L (98-107); Glucose 116 mg/dL (74-99); Non-African American GFR(CKD) >90 (>60 ml/min/1.73 sqM); Sodium 138 mmol/L (137-145); Total Bilirubin 0.3 mg/dL (0.2-1.3); Total Protein 6.4 g/dL (6.3-8.2)
[2021-04-15 11:48] VITALS: BP 112/74; PULSE 67; TEMP 98.6
== END 2021-04-15 11:44 | disposition home or self-care (01) ==
LOC: EC 10:02
DX: S39.012A Strain of muscle, fascia and tendon of lower back, initial encounter (principal); N39.0 Urinary tract infection, site not specified; Z88.0 Allergy status to penicillin; Z87.891 Personal history of nicotine dependence; X58.XXXA Exposure to other specified factors, initial encounter
CPT/HCPCS: 99284; 96372; 36415; 80053; 85025; 81001; 81025; 72100; J1885